=== PATIENT | female | born 1960 | race Hispanic/Latino ===

== ENCOUNTER 2017-08-30 10:57 | Emergency (ER) | payer OTHER ==
[2017-08-30 11:14] VITALS: TEMP 98; O2SAT 100; BMI 21.7
[2017-08-30] MEDS ORDERED: Methocarbamol 500 MG Tab PO STA (11:39)
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
[2017-08-30 12:54] VITALS: BP 110/56; PULSE 62; RESP 16
== END 2017-08-30 12:51 | disposition home or self-care (01) ==
LOC: ED 10:57
DX: S13.4XXA Sprain of ligaments of cervical spine, initial encounter (principal); V49.9XXA Car occupant (driver) (passenger) injured in unspecified traffic accident, initial encounter
CPT/HCPCS: 96372; 99284; J1885